=== PATIENT | female | born 1945 | race Caucasian/White ===

== ENCOUNTER → 2017-01-09 | Outpatient (CLI) | payer MEDICARE ==
--- NOTE | 2017-01-09 15:42 | RAD ---
Right hip, 2 views, 01/09/2017: History: Hip pain There is severe narrowing of the right hip joint with subchondral sclerosis, cyst formation and marginal spurring. No acute fracture or dislocation is identified. Scattered arterial calcifications are noted. IMPRESSION: Severe osteoarthritis at the right hip joint.
== END | disposition home or self-care (01) ==
LOC: DXRADRC 11:44
PROVIDERS: ATTEND General Practice
DX: M16.11 Unilateral primary osteoarthritis, right hip (principal)
CPT/HCPCS: 73502

== ENCOUNTER → 2019-03-02 | Outpatient (CLI) | payer MEDICARE ==
--- NOTE | 2019-03-02 10:57 | RAD ---
EXAM: Pelvis and right hip, 3 views. HISTORY: Pain. COMPARISON: 01/09/2017 FINDINGS: A frontal view of the pelvis and frontal and frog-leg views of the right hip are obtained. There is severe right hip joint space narrowing with degenerative subchondral sclerosis, subchondral cyst formation, bony remodeling and marginal osteophytosis. No convincing fracture is seen. IMPRESSION: 1. Severe right hip osteoarthritis with bony remodeling. 2. No convincing fracture. Electronically signed by: Mayda Calhoun MD (03/02/2019 10:54 AM) [facility]
[2019-03-02 11:24] LABS: BASO # 0.1 x10^3/uL (0.0-0.2); BASO % 1 % (0-3); EOS # 0.2 x10^3/uL (0.0-0.7); EOS % 2 % (0-3); HEMATOCRIT 31.6 % (36.0-47.0); HEMOGLOBIN 9.7 g/dL (12.0-15.5); LYMPH # 1.7 x10^3/uL (1.0-4.8); LYMPH % 18 % (24-48); MEAN CORPUSCULAR HEMOGLOBIN 23 pg (25-35); MEAN CORPUSCULAR HGB CONC 31 g/dL (31-37); MEAN CORPUSCULAR VOLUME 74 fL (79-100); MONO # 0.8 x10^3/uL (0.0-1.1); MONO % 8 % (0-9); NEUT # 6.7 x10^3uL (1.8-7.7); NEUT % 71 % (31-73); PLATELET COUNT 161 x10^3/uL (140-400); RED BLOOD COUNT 4.26 x10^6/uL (3.50-5.40); RED CELL DISTRIBUTION WIDTH 17.7 % (11.5-14.5); WHITE BLOOD COUNT 9.4 x10^3/uL (4.0-11.0)
[2019-03-02 11:43] LABS: ALBUMIN 3.7 g/dL (3.4-5.0); ALBUMIN/GLOBULIN RATIO 0.9 (1.0-1.7); CALCIUM 9.2 mg/dL (8.5-10.1); CREATININE 0.9 mg/dL (0.6-1.0); GFR 61.5; POTASSIUM 4.1 mmol/L (3.5-5.1); TOTAL BILIRUBIN 0.5 mg/dL (0.2-1.0); TOTAL PROTEIN 7.8 g/dL (6.4-8.2)
[2019-03-02 11:54] LABS: PLT ESTIMATE ADEQUATE (ADEQUATE)
[2019-03-02 11:55] LABS: ANISOCYTOSIS MOD; HYPOCHROMIA PRESENT; MICROCYTOSIS SLIGHT; OVALOCYTES OCC; POIKILOCYTOSIS SLIGHT; POLYCHROMASIA PRESENT
[2019-03-02 11:56] LABS: TEAR DROP CELLS OCC
[2019-03-02 21:07] LABS: THYROXINE 11.4 ug/dL (4.5-12.0)
[2019-03-03 04:10] LABS: HEMOGLOBIN A1C 6.7 % (4.8-5.6)
== END | disposition home or self-care (01) ==
LOC: DXRAD 10:35
PROVIDERS: ATTEND General Practice
DX: M16.11 Unilateral primary osteoarthritis, right hip (principal); M25.751 Osteophyte, right hip; I10 Essential (primary) hypertension; E11.9 Type 2 diabetes mellitus without complications; E03.9 Hypothyroidism, unspecified; R79.89 Other specified abnormal findings of blood chemistry
CPT/HCPCS: 36415; 73502; 80053; 82306; 83036; 84436; 84443; 84480; 85025

== ENCOUNTER → 2019-09-03 | Outpatient (CLI) | payer MEDICARE ==
--- NOTE | 2019-09-03 14:50 | RAD ---
2 view study of the right hip and AP view of the pelvis Clinical indications: Right hip pain. FINDINGS: There is severe loss of joint space with [id number] interface of the right hip joint diffusely with subchondral sclerosis and moderate spurring and moderate subchondral cyst formation. No acute fracture or dislocation or lytic process is seen. AP view of the pelvis demonstrates no significant arthritic change of the left hip joint. No acute fracture or diastases or lytic process is seen. IMPRESSION: Primary degenerative osteoarthritis of the right hip joint. Electronically signed by: Madi Rod MD (09/03/2019 2:48 PM) [id number]
== END | disposition home or self-care (01) ==
LOC: DXRAD 13:09
PROVIDERS: ATTEND Orthopaedic Surgery Sports Medicine
DX: M16.11 Unilateral primary osteoarthritis, right hip (principal)
CPT/HCPCS: 73502

== ENCOUNTER → 2019-12-28 | Outpatient (CLI) | payer MEDICARE ==
--- NOTE | 2019-12-28 10:29 | RAD ---
EXAM: Pelvis and right hip, 3 views. HISTORY: Arthroplasty. COMPARISON: None. FINDINGS: A frontal view the pelvis and frontal and frog-leg views of the right hip are obtained. There is a right hip arthroplasty in expected position. There is left hip joint space narrowing. There is degenerative change at the lumbosacral junction. IMPRESSION: Right hip arthroplasty in expected position. Electronically signed by: Mayda Calhoun MD (12/28/2019 10:26 AM) [id number]
== END ==
LOC: DXRAD 10:08
PROVIDERS: ATTEND Physician Assistant
DX: M16.11 Unilateral primary osteoarthritis, right hip (principal); Z96.641 Presence of right artificial hip joint
CPT/HCPCS: 73502